=== PATIENT | male | born 1960 | race African-American/Black ===

== ENCOUNTER 2016-12-22 07:13 | Emergency (ER) | payer BC, MEDICAID, OTHER ==
[~2016-12-22] VITALS: Ht 193 cm; Wt 105.0 kg
[2016-12-22 07:15] VITALS: Ht 193 cm; Wt 105.0 kg
[2016-12-22] MEDS ORDERED: ERYTOPOI RIGHT EYE (08:22)
[2016-12-22] MEDS ORDERED: BEN25 PO (08:22)
[2016-12-22] MEDS ORDERED: SULF1TAB31 PO (08:23)
[2016-12-22] MEDS ORDERED: AMOX1TAB10 PO (08:23)
--- NOTE | 2016-12-22 08:37 | ERD ---
ER Documentation Chief Complaint Date/Time DATE: 12/22/16 TIME: 08:32 Chief Complaint Complains of right eye pain x 5 days HPI This is a 56-year-old male presents the emergency department today complaining of right eye pain and swelling and itchiness for the past 5 days. Patient states that [place] and there was a lot of mosquitoes and not surrounding him. States he is unsure if he got one in his eye. States that the eye has progressively gotten more swollen. States it was closed shut this morning. States he has had some discharge. Denies any blurred vision, fevers or chills. ROS All systems reviewed and are negative except as per history of present illness. Medications Home Meds Active Scripts Amoxicillin/Potassium Clav (Amox-Clav 875-125 mg Tablet) 875-125 mg Tab, 1 TAB PO BID for 7 Days, #14 TAB Prov:DOMINICK GONZALEZ PA-C 12/22/16 Sulfamethoxazole/Trimethoprim* (Bactrim Ds* Tablet) 1 Each Tablet, 1 TAB PO BID , #14 TAB Prov:DOMINICK GONZALEZ PA-C 12/22/16 Erythromycin* (Erythromycin* Ophthalmic) 1 Applic Oint, 1 APPLIC RIGHT EYE QID for 7 Days Prov:DOMINICK GONZALEZ PA-C 12/22/16 Diphenhydramine Hcl* (Benadryl*) 25 Mg Cap, 25 MG PO Q6, #30 CAP Prov:DOMINICK GONZALEZ PA-C 12/22/16 Allergies Allergies: Coded Allergies: No Known Allergy (Unverified , 12/22/16) PMhx/Soc Medical and Surgical Hx: pt denies Medical Hx, pt denies Surgical Hx Hx Alcohol Use: Yes (social) Hx Substance Use: No Hx Tobacco Use: No Smoking Status: Never smoker Physical Exam Vitals Vital Signs Date Time Temp Pulse Resp B/P Pulse Ox O2 Delivery O2 Flow Rate FiO2 12/22/16 07:15 98.3 57 20 156/80 98 Physical Exam Const: No acute distress Head: Atraumatic Eyes: Conjunctive with no erythema. Very small amount of drainage. PERRLA. EOM intact. Nonpainful. Localized swelling over upper eyelid ENT: Normal External Ears, Nose and Mouth. Neck: Full range of motion..~ No meningismus. Resp: Clear to auscultation bilaterally Cardio: Regular rate and rhythm, no murmurs Skin: No petechiae or rashes Neur: Awake and alert Psych: Normal Mood and Affect Procedures/MDM This 56-year-old male who presents the emergency department today complaining of right eye pain and swelling that is getting progressively worse over the past 5 days. Patient's physical exam he has localized periorbital swelling on his upper eyelid. I did do a visual acuity. Visual acuity Right eye 20/13 Left eye 20/15 Bilateral 20/15 I also had the patient I washed out with normal saline. Patient reported some improvement. Patient is afebrile and otherwise well-appearing. He has no pain with extraocular movement. Of low suspicion for orbital cellulitis. Do not feel he requires an ultrasound at this time however I will cover the patient for periorbital or preseptal cellulitis in addition to allergic reaction. Patient was given a prescription for Benadryl, Bactrim, Augmentin and erythromycin. I have explained to him that the erythromycin would cover him for any corneal abrasion. Unfortunately at this time I do not have access to a Ramirez lamp and I am unable to stay in the eye and do a Ramirez lamp exam. Again I do have low suspicion for orbital cellulitis, acute narrow angle glaucoma, hyphema, globe rupture He is instructed to follow-up with his primary care physician as well as [facility]. At this time the patient is stable for discharge and outpatient management. Patient should follow up with their PCP in the next 1-2 days. They may return to the emergency department sooner for any persistent or worsening of symptoms. Patient understood and agreed with the plan. Departure Diagnosis: Primary Impression: Eye problem Condition: Fair Patient Instructions: Cellulitis, Allergic Reaction, Insect (Local) Referrals: COMM[facility]ITY CLINICS YOU HAVE RECEIVED A MEDICAL SCREENING EXAM AND THE RESULTS INDICATE THAT YOU DO NOT HAVE A CONDITION THAT REQUIRES URGENT TREATMENT IN THE EMERGENCY DEPARTMENT. FURTHER EVALUATION AND TREATMENT OF YOUR CONDITION CAN WAIT UNTIL YOU ARE SEEN IN YOUR DOCTORS OFFICE WITHIN THE NEXT 1-2 DAYS. IT IS YOUR RESPONSIBILITY TO MAKE AN APPOINTMENT FOR FOLOW-UP CARE. IF YOU HAVE A PRIMARY DOCTOR --you should call your primary doctor and schedule an appointment IF YOU DO NOT HAVE A PRIMARY DOCTOR YOU CAN CALL OUR PHYSICIAN REFERRAL HOTLINE AT IF YOU CAN NOT AFFORD TO SEE A PHYSICIAN YOU CAN CHOSE FROM THE FOLLOWING [facility] [id number] [facility]. [facility] [address] [facility]. [facility] [phone] [facility]. [facility] [address] [facility]. [facility] [phone] [facility]. [facility] [address] [facility]. [facility] Hours: Mon - Fri 9:00 AM - 5:00 PM Additional Instructions: Call your primary care doctor TOMORROW for an appointment during the next 1-2 days.See the doctor sooner or return here if your condition worsens before your appointment time. Take both oral antibiotics as prescribed Use erythromycin as prescribed Take Benadryl as prescribed to help decrease swelling and itching DOMINICK GONZALEZ PA-C Dec 22, 2016 08:37
== END 2016-12-22 08:32 | disposition home or self-care (01) ==
LOC: FTE 07:13
DX: H57.11 Ocular pain, right eye (principal)
CPT/HCPCS: 99284